=== PATIENT | female | born 1950 | race Two or more races ===

== ENCOUNTER 2024-05-03 15:31 | Emergency (ER) | payer OTHER, MEDICAID, SELFPAY ==
--- NOTE | 2024-05-03 | XR_ITS ---
Examinations: MRI Brain without intravenous contrast. MRA brain without intravenous contrast. MRA carotids without intravenous contrast 3-D vascular reconstructions Date and time of exam: May 03, 2024 1827 hrs. Indications: Stroke alert today, onset focal neurologic deficit, right-sided facial droop Technique: Multiple axial and sagittal images of the brain have been obtained MRA brain carotid images without contrast obtained, including 3-D postprocessing, vascular maximum intensity projection images Findings: [place] is not enlarged. The optic chiasm and infundibular stalk are not remarkable. Prepontine and interpeduncular cisterns are not enlarged. No localized enlargement of the medulla or demetrius. Fourth ventricle and cerebellar tonsils normal in position. Subacute hemorrhage is not seen. Fourth ventricle is midline. Mass in the cerebellopontine angle region is not evident. 7th and 8th nerve complexes exhibits symmetry. Globes are symmetrical with no retro-orbital mass. Increased white matter signal moderate Diffusion-weighted images demonstrate no focus of restricted diffusion Mass-effect upon the ventricular system is not identified. MRA carotid images degraded by patient motion. MRA brain images no large vessel occlusions Impression: Negative for acute hemorrhage mass effect or midline shift No acute infarct Moderate chronic microvascular white matter change No cerebral large vessel occlusions or thrombus
--- NOTE | 2024-05-03 15:36 | EKG_ITS ---
[facility] Test Date: 2024-05-03 Pat Name: LOUISA GORDON Department: Room: - Gender: Female Cardiovascular Invasive Specialist: : 1950 Requested By: Victorino Martino Order Number: [id number] Reading MD: Victorino Martino Measurements Intervals [place] Rate: 101 P: 37 IN: 194 QRS: -20 QRSD: 93 T: 30 QT: 336 QTc: 437 Interpretive Statements SINUS TACHYCARDIA INFERIOR MYOCARDIAL INFARCTION , PROBABLY OLD [40+ ms Q WAVE AND/OR ST/T ABNORMALITY IN II/aVF] No previous ECG available for comparison /[id number]/S0/[id number]
--- NOTE | 2024-05-03 15:36 | XR_ITS ---
Examination: CTA carotids with intravenous contrast CTA brain, head with intravenous contrast. 2-D sagittal, coronal reconstructions. 3-D reconstructions. Exam date and time: May 03, 2024 1550 hrs. Indications: Stroke alert, onset right-sided facial droop today CTDI: vol (mGy) 11.1 DLP: (mGycm) 410 Technique: Multiple CTA axial brain, head carotid images post intravenous contrast injection 75 cc, [id number]. 2-D sagittal, coronal reconstructions. 3-D reconstructions, 3-D post processing including vascular maximum intensity projection images. Low dose protocols were performed. One or more of the following dose reduction techniques were used; automated exposure control, adjustment of the mA and/or KV according to patient size, use of iterative reconstruction technique. Findings: No significant common carotid carotid bifurcation or internal carotid artery stenoses Codominant vertebral arteries with no critical stenoses No cerebral large vessel arterial occlusions, thrombus, dissection or cerebral aneurysm Impression: No significant neck arterial stenoses No cerebral large vessel arterial occlusions or thrombus
--- NOTE | 2024-05-03 15:36 | XR_ITS ---
Examination: CT brain head without contrast. 2-D sagittal coronal reconstructions Date and time of exam:April 23, 2024 1338 hrs. Indications: Stroke alert, onset right-sided facial droop today CTDI: vol (mGy):46.9 DLP: (mGycm):942 Technique: Multiple CT axial sections of the brain have been obtained, 5 mm slice thickness. Contrast has not been administered. 2-D sagittal, coronal reconstructions have been obtained Low dose protocols were performed. One or more of the following dose reduction techniques were used; automated exposure control, adjustment of the mA and/or KV according to patient size, use of iterative reconstruction technique. Findings: No significant ventricular enlargement. Intra-axial or extra-axial hemorrhage density is not seen. No mass effect or midline shift Basal cisterns are not remarkable. Fourth ventricle is midline. Cranial vault intact. Impression: Negative for acute hemorrhage, mass effect or midline shift
--- NOTE | 2024-05-03 15:37 | EDNOTE_ITS ---
ED General RME/HPI General Chief complaint: General Adult/Misc Complain Stated complaint: Facial droop since this morning Time Seen by Provider: 05/03/24 15:35 Arrival date/time: 05/03/24 15:31 CC: Right-sided facial droop HPI patient states last normal at 7:30 AM. Son however has conflicting starting today and he saw the patient around 9 AM when she was normal and then he got a call after he left the house where she stated that she was not feeling well . Patient denies slurred speech word salad patient states a similar episode that resolved spontaneously she never follow-up with medical professional patient states this was years ago . Patient denies facial pain, photosensitivity, loss of taste. Related Data Allergies Allergy/AdvReac Type Severity Reaction Status Date / Time No Known Allergies Allergy Verified 05/03/24 15:37 Review of Systems Review of Systems Narrative Review of Systems: GEN: No fever, no chills, no weight loss EYES: No discharge, no visual changes, no pain HEENT: No ear pain, no congestion, no sore throat PULM: No shortness of breath, no cough, no congestion CV: No chest pain, no dyspnea on exertion, no palpitations GI: No nausea, no vomiting, no diarrhea, no pain, no constipation : No frequency, no urgency, no dysuria MUSC/SKEL: No joint pain, no back pain SKIN: No rash PSYCH: No hallucinations, no depression HEME/LYMPH: No easy bleeding or bruising tendencies NEURO: No weakness, no headache,+ facial droop Past Medical History Social History SMOKING STATUS: Never smoker ED Exam Narrative Physical exam: [General: Obese not in any acute distress Head normocephalic HEENT: Eyes: Pupils are PERRLA EOMs are intact, no right ptosis. Nose no rhinorrhea mouth right sided facial droop, no deviated tongue, all other HEENT subsystems are within acceptable limits Neck is supple nontender Chest equal chest rise nontender to palpation Respiratory: Clear to auscultation no wheezes crackles or rubs CV: Rate rhythm is regular no murmurs rubs or clicks Abdomen is distended secondary to body habitus soft nontender no masses positive bowel sounds all 4 quadrants Back: No CVA tenderness no spinous process tenderness from cervical spine thoracic and lumbar spine Skin: Intact no petechiae rash induration ulceration or crepitus Extremities: Moving all extremity against resistance cap refill less than 2 seconds neurosensory intact 5/5 strength in all 4 extremities no focal deficits neurosensory intact Neuro: Awake alert oriented x3 Glascow coma 15 no focal deficits] Course Quality Measures none Orders Category Date Time Status Bedside Blood Glucose NOW Care 05/03/24 15:36 Active Model Technician NOW Care 05/03/24 15:36 Active Continuous Pulse Oximetry NOW Care 05/03/24 15:36 Completed EKG (ED ONLY) *Do not use* NOW Care 05/03/24 15:36 Completed In and Out Catheter NEEDED Care 05/03/24 15:36 Active Insert IV NOW Care 05/03/24 15:36 Active MRI Screening NOW Care 05/03/24 17:21 Completed MRI Screening NOW Care 05/03/24 17:27 Active NIH Stroke Scale now Care 05/03/24 15:36 Active NPO NOW Care 05/03/24 15:36 Active Nurse Swallow Screen x1 Care 05/03/24 15:36 Active Consult to Neurology / Tele-Neurology Routine Cons 05/03/24 15:[address] angio stroke protocol Stat Exams 05/03/24 15:[address] stroke protocol Stat Exams 05/03/24 15:36 Completed EKG (ED Only) Stat Exams 05/03/24 15:36 Draft MR stroke protocol Stat Exams 05/03/24 Completed CBC Stat Lab 05/03/24 15:40 Completed Comprehensive Metabolic Panel Stat Lab 05/03/24 15:40 Completed Drug Screen,Urine Stat Lab 05/03/24 17:25 Completed HCG Titer if Positive Stat Lab 05/03/24 15:40 Completed Magnesium Stat Lab 05/03/24 15:40 Completed Partial Thromboplastin Time Stat Lab 05/03/24 15:40 Completed Prothrombin Time with INR Stat Lab 05/03/24 15:40 Completed Troponin I Stat Lab 05/03/24 15:40 Completed Urinalysis Stat Lab 05/03/24 17:25 Completed Urine Culture Stat Lab 05/03/24 17:25 Received Ondansetron Inj [Zofran Inj] Med 05/03/24 15:36 Active 4 mg IV Q4HR PRN Oxygen Delivery NOW RT 05/03/24 15:36 Active Vital Signs Vital signs: Vital Signs Temperature 99.0 F 05/03/24 15:38 Pulse Rate 111 H 05/03/24 15:38 Respiratory Rate 16 05/03/24 15:38 Blood Pressure 180/81 H 05/03/24 15:38 Pulse Oximetry (%) 95 05/03/24 15:38 Oxygen Delivery Method Room Air 05/03/24 15:38 [facility] Patient data External records reviewed:: [facility] previous records Clinical information provided by:: patient Social determinants that could affect healthcare access:: none Patient has the following chronic illnesses:: None How is presenting disease/condition affected by chronic disease/condition?: u neffected by Evaluation data The following diagnostics were reviewed and interpreted by me:: lab results, radiology exam(s) and EKG tracing(s) Lab and/or radiology exams considered but not ordered:: CBC shows mild leukocytosis of 13.0 no anemia thrombocytopenia Coags within acceptable limits CMP shows mild elevated glucose, no other acute electrolyte imbalances renal impairment transaminitis or T. bili elevation. Troponin is negative BNP is negative CT of the head is interpreted by me read by radiology as negative for any acute finding EKG performed at 1625 shows a ventricular rate of 101 UT interval 194 QRS of 93 QTc of 394 is a sinus tachycardia MRI brain is negative for LVO or infarct. Interpretation Summary: Suspect Conley's palsy Medications Medications considered but not ordered:: None Medication administrations:: Medication Administration History Ondansetron HCl (Ondansetron Inj 2 Mg/Ml Inj 2 Ml) 4 mg IV Q4HR PRN PRN Reason: NAUSEA OR VOMITING Stop: 06/02/24 15:35 None Consultations Consultation(s) initiated? (list below): No Diagnosis Differential Diagnosis ED Complaint MDM: CVA TIA Conley's palsy Most likely diagnosis given after review of the tests above:: Conley's palsy Admission Indicated Admission indicated?: not indicated Explain why admission is indicated or not indicated:: Stable for discharge Admission Request Was there a request for admission?: No Disposition Plan Disposition Plan: Discharge Discharge Attestation Discharge Attestation: The patient and all family members were given an opportunity to ask questions and understood the discharge instructions. Discharge instructions specifically effects, indications for sooner follow up or return to the emergency department, and the expected course of current diagnosis. Patient condition: Stable Medical Decision Making Differential Diagnosis Differential Diagnosis: CVA TIA Conley's palsy Lab Data 05/03/24 15:40 05/03/24 15:40 Labs: Lab Results 05/03/24 05/03/24 Range/Units 15:40 17:25 WBC 13.0 H (3.6-11.0) Thou/mm3 RBC 4.73 (4.00-5.20) Miln/mm3 Hgb 14.1 (12.0-16.0) g/dL Hct 42.0 (36.0-46.0) % MCV 89 (80-100) fL MCH 29.8 (25.0-35.0) pg MCHC 33.6 (31.0-37.0) g/dl RDW Std Deviation 42.6 (36.4-46.3) fL Plt Count 265 (140-440) Thou/mm3 Neut % (Auto) 67 (37-80) % Lymph % (Auto) 24 (10-50) % [place] % (Auto) 7 (0-12) % Eos % (Auto) 1 (0-10) % Baso % (Auto) 0 (0-2.5) % Neut # (Auto) 8.7 H (1.8-7.7) Thou/mm3 Lymph # (Auto) 3.1 (1.0-4.8) Thou/mm3 [place] # (Auto) 0.9 H (0.0-0.8) Thou/mm3 Eos # (Auto) 0.2 (0.0-0.5) Thou/mm3 Baso # (Auto) 0.1 (0.0-0.2) Thou/mm3 Immature Gran # (Auto) 0.04 H (0.00-0.00) Thou/mm3 Absolute Nucleated RBC 0.00 (0.00-0.00) Thou/mm3 Immature Gran % 0 (0-0) % Nucleated RBC % 0 (0) /100 WBC PT 10.9 (9.0-12.2) Seconds INR 1.0 (0.9-1.3) APTT 26.4 (22.0-36.0) Seconds Sodium 142 (136-145) mMol/L Potassium 3.7 (3.4-5.1) mMol/L Chloride 107 (98-107) mMol/L Carbon Dioxide 25.8 (20.0-31.0) mMol/L Anion Gap 9 (7-16) BUN 9 (9-23) mg/dL Creatinine 0.8 (0.6-1.3) mg/dL Estim Creat Clear Calc Not Performed. eGFR > 60 (60 - ) See Note BUN/Creatinine Ratio 11 L (12-20) Ratio Glucose 122 H (74-106) mg/dL Calculated Osmolality 282 (275-295) Calcium 9.9 (8.3-10.6) mg/dL Corrected Calcium 9.9 (8.5-10.1) mg/dL Magnesium 2.0 (1.6-2.6) mg/dL Total Bilirubin 0.7 (0.3-1.2) mg/dL AST 16 (0-34) U/L ALT 13 (10-49) U/L Alkaline Phosphatase 78 (46-116) U/L Troponin I < 0.020 (0.0-0.045) ng/mL Total Protein 7.9 (5.7-8.2) gm/dL Albumin 4.9 H (3.4-4.8) gm/dL Globulin 3.0 (2.3-3.5) gm/dL Albumin/Globulin Ratio 1.6 (1.2-2.2) Ur Collection Type Clean Catch Urine Color Colorless A (Lt Yel-Yel) Urine Clarity Clear (Clear/Hazy) Urine pH 7.0 (5.0-7.0) Ur Specific [place] 1.044 H (1.001-1.035) Urine Protein Negative (Neg - Trace) Urine Glucose (UA) Negative (Negative) Urine Ketones Negative (Negative) Urine Blood Negative (Negative) Urine Nitrite Negative (Negative) Urine Bilirubin Negative (Negative) Urine Urobilinogen (Auto) Negative (0.0-1.0) mg/dL Ur Leukocyte Esterase Positive (Negative) Urine RBC 1 (0-3) /hpf Urine WBC 15 H (0-5) /hpf Ur Squamous Epith Cells 1 (0-5) /hpf Urine Bacteria None (None) Urine Opiates Screen Negative (Negative) Urine Fentanyl Screen Negative (Negative) Ur Barbiturates Screen Negative (Negative) U Amphetamin/Meth Scrn Negative (Negative) U Benzodiazepines Scrn Negative (Negative) U Cocaine Metab Screen Negative (Negative) U Marijuana (THC) Screen Negative (Negative) HCG (Qual) Negative Discharge Plan Plan Patient Disposition: HOME (Self Care) Patient condition on transfer: Stable Prescriptions/Referrals Referrals: No Primary/Family,Physician [Primary Care Provider] - In 1 week Mark Perea MD [Physician] - In 1 week Problem List Clinical Impression: Conley's palsy Patient/Caregiver Discharge Instructions Education Materials: ED Conley's Palsy Print Language: [place] Stand Alone Forms: Odalis Award Info., Patient Portal Info Letter, Work/School Release PA/SENIOR SYSTEMS ENGINEER Supervising Physician PA/SENIOR SYSTEMS ENGINEER Supervising Physician: Victorino Krause ENP
[2024-05-03 15:38] VITALS: BP 174/75; BP 180/81; PULSE 111; RESP 16; TEMP 37.2; O2SAT 95
--- NOTE | 2024-05-03 15:44 | ESCONSULT_ITS ---
Tele Neuro Consultation Consultation Date 05/03/24 Most Recent Vital Signs Last Vital Signs Temp 99.0 F 05/03/24 15:38 Pulse 111 H 05/03/24 15:38 Resp 16 05/03/24 15:38 BP 180/81 H 05/03/24 15:38 Pulse Ox 95 05/03/24 15:38 O2 Del Method Room Air 05/03/24 15:38 Consultation Narrative [facility] Patient Name:???Nadia Dee Date of :???1950 Identification Number:??? Date of Service:???05/03/2024 15:38:18 Diagnosis:?G51.8 - Other disorders of facial nerve Impression: ?73 yr old [place]ian speaking female ?with sig PMHx of HTN, HLD, hx of right facial palsy over 10 yr ago, p/w right facial droop. TLKW last night 21:30. ? ?NIHSS = 1 ? ?CT head non acute ? ?CTA head and neck no LVO or significant stenosis ? ?No IV Tenecteplase - out of 4.5 hour time frame ? ?DDX include suspect recurrent right [place] palsy / atypical bells palsy .. however with several ACVSD risk factor advise obtain MRI brain w/o to look for BS etiology. treat for [place] palsy with valacyclovir and steroid continue if MRI brain unremarkable Our recommendations are outlined below: ? Stroke/Telemetry Floor ? Neuro Checks ? Bedside Swallow Eval ? DVT Prophylaxis ? IV Fluids, Normal Saline ? Head of Bed 30 Degrees ? Euglycemia and Avoid Hyperthermia (PRN Acetaminophen) ? Initiate or continue Aspirin 81 MG daily ? Antihypertensives PRN if Blood pressure is greater than 220/120 or there is a concern for End organ damage/contraindications for permissive HTN. If blood pressure is greater than 220/120 give labetalol PO or IV or Vasotec IV with a goal of 15% reduction in BP during the first 24 hours. Sign Out: ? Discussed with Emergency Department Provider Advanced Imaging: CTA Head and Neck Completed. LVO:No Patient in not a candidate for [place] Metrics: Last Known Well: 05/03/2024 07:30:00 Dispatch Time: 05/03/2024 15:38:18 Arrival Time: 05/03/2024 15:31:00 Initial Response Time: 05/03/2024 15:40:24Symptoms: right facial droop. Initial patient interaction: 05/03/2024 16:03:26 NIHSS Assessment Completed: 05/03/2024 16:15:26Patient is not a candidate for Thrombolytic. Thrombolytic Medical Decision: 05/03/2024 16:02:30Patient was not deemed candidate for Thrombolytic because of following reasons: LKW outside 4.[address] head showed no acute hemorrhage or acute core infarct. Primary Provider Notified of Diagnostic Impression and Management Plan on: 05/03/2024 17:19:00 History of Present Illness:Patient is a 73 year old Female. Patient was brought by private transportation with symptoms of right facial droop. 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 TLKW last night 21:30. she woke up this AM with persistent symptoms. She has not been able to eat or drink because she would drool . The patient denies new medications, fall, LOC, headache, diplopia, visual loss or change, aphasia, one side extremity weakness, or paresthesias. Past Medical History: ?Hypertension ?Hyperlipidemia ?There is no history of Diabetes Mellitus ?There is no history of Atrial Fibrillation ?There is no history of Coronary Artery Disease ?There is no history of Stroke ?There is no history of Covid-19 ?There is no history of Seizures ?There is no history of Migraine Headaches ?There is no history of Dementia/MCI Medications: No Anticoagulant use? Antiplatelet use:?Yes?ASA Reviewed EMR for current medications Allergies:? Reviewed Social History: Drug Use: No Family History: There is no family history of premature cerebrovascular disease pertinent to this consultation ROS : 14 Points Review of Systems was performed and was negative except mentioned in HPI. Past Surgical History: There Is No Surgical History Contributory To Today?s Visit Examination: BP(172/86),?Pulse(111),?Blood Glucose(133) 1A: Level of Consciousness - Alert; keenly responsive?+ 0 1B: Ask Month and Age - Both Questions Right?+ 0 1C: Blink Eyes & Squeeze Hands - Performs Both Tasks?+ 0 2: Test Horizontal Extraocular Movements - Normal?+ 0 3: Test Visual [place] - No Visual Loss?+ 0 4: Test Facial Palsy (Use Grimace if Obtunded) - Unilateral Complete paralysis (upper/lower face)?+ 3 5A: Test Left Arm Motor Drift - No Drift for 10 Seconds?+ 0 5B: Test Right Arm Motor Drift - No Drift for 10 Seconds?+ 0 6A: Test Left Leg Motor Drift - No Drift for 5 Seconds?+ 0 6B: Test Right Leg Motor Drift - No Drift for 5 Seconds?+ 0 7: Test Limb Ataxia (FNF/Heel-Morrow) - No Ataxia?+ 0 8: Test Sensation - Normal; No sensory loss?+ 0 9: Test Language/Aphasia - Normal; No aphasia?+ 0 10: Test Dysarthria - Normal?+ 0 11: Test Extinction/Inattention - No abnormality?+ 0 NIHSS Score:?3 Pre-Morbid Modified Efe Scale:0 Points = No symptoms at all Spoke with :?WILBER Krause This consult was conducted in real time using interactive audio and video technology. Patient was informed of the technology being used for this visit and agreed to proceed. Patient located in hospital and provider located at home/office setting. Patient is being evaluated for possible acute neurologic impairment and high probability of imminent or life-threatening deterioration. I spent total of 47 minutes providing care to this patient, including time for face to face visit via telemedicine, review of medical records, imaging studies and discussion of findings with providers, the patient and/or family. Dr Noa Ludwig [facility] For Inpatient follow-up with [facility] physician please call [facility] at . As we are not an outpatient service for any post hospital discharge needs please contact the hospital for assistance. If you have any questions for the [facility] physicians or need to reconsult for clinical or diagnostic changes please contact us via [facility] at .
[2024-05-03 15:52] LABS: Basophils # (Auto) 0.1 Thou/mm3 (0.0-0.2); Basophils % (Auto) 0 % (0-2.5); Eosinophils # (Auto) 0.2 Thou/mm3 (0.0-0.5); Eosinophils % (Auto) 1 % (0-10); Hemoglobin 14.1 g/dL (12.0-16.0); Immature Granulocytes % (Auto) 0 % (0-0); Immature Granulocytes Auto 0.04 Thou/mm3 (0.00-0.00); Lymphocytes # (Auto) 3.1 Thou/mm3 (1.0-4.8); Lymphocytes % (Auto) 24 % (10-50); Mean Corpuscular HGB Conc 33.6 g/dl (31.0-37.0); Mean Corpuscular Hemoglobin 29.8 pg (25.0-35.0); Mean Corpuscular Volume 89 fL (80-100); Monocytes # (Auto) 0.9 Thou/mm3 (0.0-0.8); Monocytes % (Auto) 7 % (0-12); Neutrophils # (Auto) 8.7 Thou/mm3 (1.8-7.7); Neutrophils % (Auto) 67 % (37-80); Nucleated Red Blood Cell % 0 /100 WBC (0); Platelet Count 265 Thou/mm3 (140-440); RDW Standard Deviation 42.6 fL (36.4-46.3); Red Blood Count 4.73 Miln/mm3 (4.00-5.20)
[2024-05-03 16:00] LABS: Partial Thromboplastin Time 26.4 Seconds (22.0-36.0); Prothrombin Time 10.9 Seconds (9.0-12.2)
[2024-05-03 16:04] LABS: Alanine Aminotransferase 13 U/L (10-49); Albumin, Serum 4.9 gm/dL (3.4-4.8); Albumin/Globulin Ratio 1.6 (1.2-2.2); Alkaline Phosphatase 78 U/L (46-116); Anion Gap 9 (7-16); Aspartate Amino Transferase 16 U/L (0-34); BUN/Creatinine Ratio 11 Ratio (12-20); Bilirubin,Total 0.7 mg/dL (0.3-1.2); Blood Urea Nitrogen 9 mg/dL (9-23); Calcium 9.9 mg/dL (8.3-10.6); Calcium (Corrected) 9.9 mg/dL (8.5-10.1); Carbon Dioxide 25.8 mMol/L (20.0-31.0); Chloride 107 mMol/L (98-107); Creatinine (Component) 0.8 mg/dL (0.6-1.3); Glucose 122 mg/dL (74-106); Osmolality,Calculated 282 (275-295); Potassium 3.7 mMol/L (3.4-5.1); Sodium 142 mMol/L (136-145); Total Protein 7.9 gm/dL (5.7-8.2); Troponin I < 0.020 ng/mL (0.0-0.045); eGFR > 60 See Note
[2024-05-03 16:07] LABS: HCG Titer if Positive Negative
[2024-05-03 16:19] VITALS: BP 172/86; PULSE 108; RESP 15; RESP 92; TEMP 36.9; O2SAT 96
[2024-05-03 16:27] VITALS: BMI 32.1
[2024-05-03 17:15] VITALS: BP 141/72; PULSE 96; RESP 17; TEMP 37.1; O2SAT 96
--- NOTE | 2024-05-03 17:56 | PC.NURSE ---
SPOKE TO JAVA SOFTWARE ENGINEER; PER MRI, WILL GO TAKE PT FOR MRI SOON.
[2024-05-03 17:58] LABS: Collection Type, Urine Clean Catch
[2024-05-03 18:20] LABS: Amphetamine/Methamp Scrn,U Negative (Negative); Barbiturate Screen,Urine Negative (Negative); Benzodiazepines Screen,Urine Negative (Negative); Benzoylecgonine Screen, Ur Negative (Negative); Bilirubin,Urine Negative (Negative); Blood,Urine Negative (Negative); Clarity,Urine Clear (Clear/Hazy); Color,Urine Colorless (Lt Yel-Yel); Fentanyl Screen,Urine Negative (Negative); Glucose, Urine Negative (Negative); Ketones,Urine Negative (Negative); Leukocyte Esterase,Urine Positive (Negative); Nitrite,Urine Negative (Negative); Opiate Screen,Urine Negative (Negative); Protein,Urine Negative (Neg - Trace); RBC,Urine 1 /hpf (0-3); Specific Gravity,Urine 1.044 (1.001-1.035); Squamous Epithelial Cell,Urine 1 /hpf (0-5); THC Screen,Urine Negative (Negative); Urobilinogen,Urine Negative mg/dL (0.0-1.0); WBC,Urine 15 /hpf (0-5)
[2024-05-03 18:54] VITALS: BP 107/83; PULSE 82; RESP 19; TEMP 37.1; O2SAT 96
[2024-05-03 18:56] VITALS: PULSE 86
[2024-05-03 19:54] VITALS: BP 139/74; PULSE 75; RESP 18; O2SAT 96
== END 2024-05-03 19:55 | disposition home or self-care (01) ==
PROVIDERS: Registered Nurse General Practice; Emergency Provider Emergency Medicine; Referring Provider Emergency Medicine
DX: G51.0 Bell's palsy (principal); R00.0 Tachycardia, unspecified; D72.829 Elevated white blood cell count, unspecified
CPT/HCPCS: 36415; 70450; 70496; 70498; 70544; 80053; 80307; 81001; 83735; 84484; 84703; 85025; 85610; 85730; 87086; 93005; 99285; A4649; Q9967